=== PATIENT | female | born 1980 | race Caucasian/White ===

== ENCOUNTER 2020-02-18 05:25 | Day surgery (SDC) | payer OTHER, SELFPAY ==
--- NOTE | 2020-02-15 17:17 | HP.PCM_ITS ---
- Problem List (1) Uterine polyp Status: Acute History and Physical Date of Admission: 02/18/20 DATE OF SERVICE: February 10, 2020 ? PROBLEM:?Intermenstrual spotting, uterine polyp ? Pelvic US: Impression ========= Normal appearing anteverted uterus that measures 94 mm x 40 mm x 50 mm. The central endometrial complex measures 10.4 mm in combined thickness. An endometrial polyp was seen: Polyp(s): Size 13 mm x 6 mm x 8 mm. Mean 9.0 mm. lower uterine segment The right ovary is not visualized. The left ovary is normal appearing. No adnexal masses were observed. There is no free fluid visualized in the peritoneal cavity. Recommendations Consider hysteroscopic evaluation and management of intracavitary lesion if clinically indicated. ? PAST SURGICAL HISTORY:? PAST SURGICAL HISTORY PAST SURGICAL HISTORY Procedure Laterality Date ? APPENDECTOMY ? ? ? PAST SURGICAL HISTORY OF ? ? ? Cyst removed from right ovary ? REMOVAL OF TONSILS,<12 Y/O ? ? ? Tonsillectomy ? PAST MEDICAL HISTORY:? PAST MEDICAL HISTORY PAST MEDICAL HISTORY Diagnosis Date ? Abnormal Pap smear of cervix ? ? 2007 ASCUS w/ pos HPV ? Chlamydia trachomatis infection of unspecified site ? ? treated age 17 or 18 ? Dysmenorrhea ? ? Dyspareunia ? ? Excessive or frequent menstruation ? ? Heavy periods ? Irregular menstrual cycle ? ? Irregular periods ? Other and unspecified ovarian cyst ? ? Ovarian cyst - at 18 years old ? Other specified anemias ? ? DX 6 years ago ? SUBJECTIVE:?She is not sure when her menses is to start.?DUB.? ? SOCIAL HISTORY:? SOCIAL HISTORY Social History ? Tobacco Use ? Smoking status: Former Smoker ? ? Years: 2.00 ? ? Quit date: 06/27/1998 ? ? Years since quittin.6 ? Smokeless tobacco: Never Used ? Tobacco comment: Quit Smoking Substance Use Topics ? Alcohol use: No ? Drug use: No ? Allergies: ?Amoxicillin ?Swelling ?Penicillins ?Swelling ? No current outpatient medications on file prior to visit. No current facility-administered medications on file prior to visit.? ? OBJECTIVE: ? VITALS:? BP 110/70 ? Pulse 66 ? Resp 12 ? Ht 5' 3.25 (1.607 m) ? Wt 142 lb 12.8 oz (64.8 kg) ? LMP 12/31/2019 (Exact Date) ? BMI 25.10 kg/m? ? HEENT: ?Normocephalic, atraumatic, Mucus membranes moist without lesions. ? NECK: ???Soft and Supple. ?No adenopathy , thyromegaly or bruits. ? SKIN: No lesions. ? CHEST: Clear to auscultation. ?No wheezes or rales. ?Good air exchange. ? HEART: Regular rate and rhythm ?No S3 or S4. ?No gallops or rubs. ? BACK: Nontender with no CVA tenderness. ? ABDOMEN: Soft, non-tender, non-distended, no masses, no hepatosplenomegaly. ? LOWER EXTREMITIES: There was no pitting edema, no palpable cords and no skin ch anges. ? ASSESSMENT:?Intermenstrual spotting, uterine polyp ? PLAN: 1)?Discussed hysteroscopy, polypectomy, D&C.?The rationale for the proposed surgery was discussed in addition to risks, benefits, and alternatives. ?General pre- and post-operative care was reviewed. ?Questions were answered. ?After discussion, the patient indicated a desire to proceed with the planned surgery. ? Lynnette Rowell,?DO
[2020-02-18] VITALS (7 sets, daily range): BP systolic 116–126; BP diastolic 79–90; PULSE 61–77; RESP 16; TEMP 36.2–36.7; O2SAT 98–100; BMI 25.4
[2020-02-18 06:10] LABS: Hematocrit 37.3 % (37-47); Hemoglobin 12.1 g/dL (12.0-15.0); Mean Corp Hgb Conc 32.4 g/dL (32-36); Mean Corpuscular Hgb 28.4 pg (27.0-32.0); Mean Corpuscular Volume 87.6 fL (81-99); Mean Platelet Vol. 9.7 fl (6.2-12.0); Platelet Count 203 K/mm3 (150-450); RBC Distribution Width CV 12.9 % (11.6-14.6); RBC Distribution Width SD 40.8 fl (35.1-43.9); Red Blood Count 4.26 M/mm3 (4.2-5.4); White Blood Count 5.8 K/mm3 (4.4-11.0)
[2020-02-18 06:21] LABS: Internal QC Validated? YES +Cl - CLEAR BKGD; Pregnancy, Urine Negative Negative
[2020-02-18] MEDS: Lactated Ringers 1,000 ML 100 ML IV (06:30)
--- NOTE | 2020-02-18 07:30 | EMB_PTH ---
PATIENT: SHARON GAMBOA LOC: [facility] [place][id number] AGE/SX: 39/F ROOM: RE02/18/[address]: Dr. Lynnette Rowell DO : 1980 BED: DIS: 02/18/2020 SPEC #: [id number] RECD: 02/18/20 09:51 STATUS: ELIZABETH DARIO #: [id number] LAKESHA: 02/18/20 07:[address]: Lynnette Rowell DEPT: SURGICAL PATHOLOGY RECD BY: Gloria Escalante ENTERED: 02/18/20 10:19 SP TYPE: ENDOM BX/C OTHR DR: Dr. Prem Joseph MD Tissues: Endometrium, NOS Procedures: Surgery Specimen Level IV HEADER OPERATION: Hysteroscopy, D & C Symphion PRE-OP DIAGNOSIS: Abnormal uterine bleeding TISSUE SUBMITTED: Endometrial curettings MICROSCOPIC DIAGNOSIS Endometrial curettings: Secretory endometrium with glandular and stromal breakdown. SJ:keon 02/19/20 COMMENT Case has been reviewed in consultation with Dr. Doty who concurs with the above diagnosis. IDC:AM MICROSCOPIC DESCRIPTION Slides are reviewed. GROSS DESCRIPTION Received in fixative is one container labeled with the patient's name and designated endometrial curettings. The specimen consists of multiple irregular fragments of gracia-pink soft tissue mixed with mucoid tissue that in aggregate measure 3 x 2.5 x 0.2 cm. The specimen is totally submitted in one cassette. / SJ:keon 02/18/20 TC:5 CPT: 05575
--- NOTE | 2020-02-18 08:10 | OP.PCM_ITS ---
Problem List (1) Uterine polyp Status: Acute (2) DUB (dysfunctional uterine bleeding) Status: Acute (3) Intermenstrual spotting Status: Acute Report of Operation Date of Procedure: 02/18/20 Pre-Operative Diagnosis: DUB, intermenstrual spotting, polyp on pelvic US Post-Operative Diagnosis: DUB, intermenstrual spotting Surgery/Procedure Performed:: Hysteroscopy D&C Description of Surgical Findings:: Fluffy appearing endometrium. No polyp or fibroid noted. Good descent of uterus and cervix. Uterine cavity sounded to 9 cm. Normal appearing uterine cavity Special Medications: None Specimen's removed: Endometrial curettings Drains: None Estimated Blood Loss (mL): < 50 cc Fluids Replaced: 400 cc with 50 cc fluid deficit Description of Procedure: Procedure start time: 738 Procedure stop time: 802 Captain Fishing Vessel: None She was taken to the operating room where MAC anesthesia was found to be adequate. She was prepped and draped in the dorsal lithotomy position using yellow fin stirrups. A weighted speculum was placed in the vagina to expose the cervix. A single-tooth tenaculum was placed on the anterior lip of the cervix. The cervix was serially dilated to accommodate the hysteroscope. Hysteroscope was advanced to the fundus of the uterus and the uterine cavity was distended with normal saline. Visibility was limited due to the patient being on menses. The hysteroscope was removed, and the Symphion hysteroscope was then set up and advanced to the fundus of the uterus. Using the Symphion hysteroscope, good visibility was obtained. Bilateral tubal ostia were noted. The uterine cavity was normal-appearing. There were no polyps or fibroids noted. The endometrium appeared proliferative. Pictures were taken. The hysteroscope was then slowly removed through the cervical canal were no polyp was noted. The hysteroscope was removed. Sharp curettage was performed and endometrial curettings were sent to pathology for review. All instruments were removed from the vagina. Bleeding was hemostatic. Patient tolerated the procedure well. Instrument and sponge counts were correct. Patient was taken to the recovery in stable c ondition. Grafts/Implants Used: None - Complications None - Admit VTE Documentation VTE Present on Admission: No VTE Mechan Device Prophylaxis: SCD's VTE Pharm Prophylaxis ordered?: No
--- NOTE | 2020-02-18 08:15 | DCINST_ITS ---
Discharge Diet: No Restrictions Discharge Activity: Return to Normal Activity, May Shower Return to work on:: 02/22/20 May resume sexual activity in: 1-2 weeks - when bleeding stops. Nothing in the vagina and no baths or hot tubs until the bleeding stops Weight Bearing Status: Weight bearing as tolerated Lifting Restrictions: No restrictions Call your doctor if you observe: Fever of 101 or Higher, Inability to urinate, Inability to have a bowel movement, Using more than one pad per hour, Shortness of breath, Dizziness, Fainting spells, Swelling in the ankles, Chest pain, Increased palpitations (irregular heartbeat), Calf discomfort, Uncontrolled pain Allergies/Adverse Reactions: Allergies Penicillins [PCN] Allergy (Verified 02/10/20 14:19) Anaphylaxis Medications to take at Discharge NK 02/10/20 Primary Care Physician: Prem Joseph MD [Primary Care Provider] - Test Results: Test results from this visit will be discussed in further detail at your follow- up appointment, if applicable. Please Follow Up With: Lynnette Rowell DO When: 1-2 weeks
== END 2020-02-18 09:31 | disposition home or self-care (01) ==
LOC: SDC 05:25 → AC 05:26
PROVIDERS: Anesthesiology; Referring Provider Obstetrics & Gynecology; Visit Provider Obstetrics & Gynecology
PROC: 0UB98ZZ Excision of Uterus, Via Natural or Artificial Opening Endoscopic (ICD-10-PCS; CPT 58558; principal; 2020-02-18 07:15)
DX: N93.8 Other specified abnormal uterine and vaginal bleeding (principal); N92.3 Ovulation bleeding; N94.10 Unspecified dyspareunia; N92.0 Excessive and frequent menstruation with regular cycle; N94.6 Dysmenorrhea, unspecified; Z87.891 Personal history of nicotine dependence; Z90.721 Acquired absence of ovaries, unilateral
CPT/HCPCS: 00952; 58558; 36415; 81025; 85027; 86850; 86900; 86901; 87635; 88305; C9803; J7120; J2405; U0003

== ENCOUNTER 2023-11-22 09:15 | Day surgery (SDC) | payer OTHER, SELFPAY ==
--- NOTE | 2023-11-18 22:02 | PCM.HP.BLA ---
History and Physical Date of Admission: 11/22/23 DATE OF SERVICE: November 18, 2023 PROBLEM: DUB DIAGNOSIS: DUB PAST SURGICAL HISTORY: PAST SURGICAL HISTORY PAST SURGICAL HISTORY Procedure Laterality Date ? APPENDECTOMY ? HYSTEROSCOPY, DIAGNOSTIC (SEPARATE 02/18/2020 Hysteroscopy D&C-Dr. Rowell ? PAST SURGICAL HISTORY OF Cyst removed from right ovary ? TONSILLECTOMY PRIMARY/SECONDARY <AGE 12 Tonsillectomy PAST MEDICAL HISTORY: PAST MEDICAL HISTORY PAST MEDICAL HISTORY Diagnosis Date ? Abnormal Pap smear of cervix 2007 ASCUS w/ pos HPV ? Chlamydia trachomatis infection of unspecified site treated age 17 or 18 ? Dysmenorrhea ? Dyspareunia ? Excessive or frequent menstruation Heavy periods ? Irregular menstrual cycle Irregular periods ? Other and unspecified ovarian cyst Ovarian cyst - at 18 years old ? Other specified anemias DX 6 years ago SUBJECTIVE: Just finished menses 2 days ago. Had heavy bleeding followed by spotting for 2 weeks. Partner had vasectomy. SOCIAL HISTORY: SOCIAL HISTORYExpand by Default Social History Tobacco Use ? Smoking status: Former Years: 2 Types: Cigarettes Quit date: 06/27/1998 Years since quittin.4 ? Smokeless tobacco: Never ? Tobacco comments: Quit Smoking Vaping Use ? Vaping Use: Never used Substance Use Topics ? Alcohol use: Not Currently ? Drug use: Not Currently Types: Marijuana Allergies: Amoxicillin Swelling Penicillins Swelling Current Outpatient Medications on File Prior to Visit Medication Sig ? ibuprofen (MOTRIN) 200 mg tablet Take 400 mg by mouth every 8 hours as needed for pain. ? norethindrone (AYGESTIN) 5 mg tablet Take 1 tablet by mouth 3 times per day until bleeding stops. Then take 1 tablet by mouth daily for 3 days. No current facility-administered medications on file prior to visit. OBJECTIVE: VITALS: BP 106/76 Pulse 68 Resp 16 Ht 161.3 cm (5' 3.5) Wt 66.6 kg (146 lb 12.8 oz) LMP 08/14/2023 (Exact Date) BMI 25.60 kg/m? HEENT: Normocephalic, atraumatic, Mucus membranes moist without lesions. NECK: Soft and Supple. SKIN: No lesions. CHEST: No increased respiratory effort. HEART: Regular rate. BACK: Nontender with no CVA tenderness. ABDOMEN: Soft, non-tender, non-distended, no masses, no hepatosplenomegaly. LOWER EXTREMITIES: There was no pitting edema, no palpable cords and no skin changes. ASSESSMENT: DUB PLAN: 1) Discussed r/b/a hysteroscopy, D&C, polypectomy, progesterone IUD insertion. The rationale for the proposed surgery was discussed in addition to risks, benefits, and alternatives. General pre- and post-operative care was reviewed. Questions were answered. After discussion, the patient indicated a desire to proceed with the planned surgery. Lynnette Rowell, DO Assessment & Plan Assessment/Plan (1) DUB (dysfunctional uterine bleeding): (2) Uterine polyp:
[2023-11-22] VITALS (9 sets, daily range): BP systolic 112–131; BP diastolic 76–87; PULSE 70–76; RESP 14–20; TEMP 36.3–36.7; O2SAT 100; BMI 26.2
[2023-11-22 09:36] LABS: Internal QC Validated? YES +Cl - CLEAR BKGD; Pregnancy, Urine Negative Negative; Record Kit Lot#,Urine Preg HCG0000772476
--- NOTE | 2023-11-22 09:39 | PCM.PRE.AN2 ---
ASA Classification* ASA Classification ASA Classification: 2 Assessment & Plan Anesthesia* Anesthesia Assessment Anesthesia Assessment: Discussed sedation and/or anesthesia options, risks, benefits, and alternatives with patient/parents/legal guardian/POA. Questions invited. The patient/parents/legal guardian/POA seems to understand and agrees to proceed with anesthesia plan. Reviewed the physical assessment, medical history, allergy history and patient home medications list prior to surgery/procedure/anesthetic and documented any changes. Performed airway and anesthesia risk assessments. Anesthesia Type Anesthesia Type: MAC (see written pre anesthesia record for full assessment) Anesthesia Focused Assessment* Temperature: 98.1 F Pulse Rate: 70 Blood Pressure: 129/84 Respiratory Rate: 16 Pulse Ox: 100 Airway Assessment Mouth opens: >3 cm Mallampati Score: II Focused Labs Anesthesia Preop lab: CBC WBC 5.8 K/mm3 (4.4-11.0) 02/18/20 06:00 RBC 4.26 M/mm3 (4.2-5.4) 02/18/20 06:00 Hgb 12.1 g/dL (12.0-15.0) 02/18/20 06:00 Hct 37.3 % (37-47) 02/18/20 06:00 Plt Count 203 K/mm3 (150-450) 02/18/20 06:00 CHEMISTRY COAG Urine Test Negative Negative 11/22/23 09:25 Pre-Assessment Diagnosis/Proposed Procedure Planned Operative Procedure(s): HYSTEROSCOPY D&C POLYPECTOMY LILETTA IUD INSERTION Anesthesia History Anesthesia History - in classroom tutor: Anesthesia History - in classroom tutor Hx Hospitalization No 11/18/23 14:00 Any Problems With Anesthesia No 11/18/23 14:00 Cholinesterase deficiency No 11/18/23 14:00 You/Your Family Experience No 11/18/23 14:00 fever (hyperthermia) with Relationship Recent Exposure to Contagious No 11/22/23 09:34 Disease Does patient have nerve No 11/18/23 14:00 stimulator Patient instructed to have device shut off --Does patient have Pacemaker No 11/22/23 09:34 or ICD? When Was Last Pacemaker Check QUESTION #4 FULL TEXT: You/Your Family Experience fever (hyperthermia) with Anesthesia Last Oral Intake Last Oral intake: Last Oral Intake NPO since 00:00 11/22/23 09:34 Meds taken in AM with sips of water? Meds patient instructed to take am of surgery PONV PONV - in classroom tutor: PONV - in classroom tutor Female Yes 11/18/23 14:00 HX of Motion Sickness No 11/18/23 14:00 HX of N/V After Surgery No 11/18/23 14:00 Non-Smoker Yes 11/18/23 14:00 Duration of Surgery greater No 11/18/23 14:00 than 60 minutes Number of Risk Factors 2 11/18/23 14:00 PONV Score Moderate Risk 11/18/23 14:00 Height & Weight Height & Weight: Anesthesia: Height & Weight Height 5 ft 3 in 11/22/23 09:34 Weight: 67.132 kg 11/22/23 09:34 Body Mass Index (BMI) 26.2 11/22/23 09:34 Respiratory Assessment Respiratory Assessment - in classroom tutor: Respiratory Tract Infection Hx - in classroom tutor Hx Respiratory Tract Infection No 11/18/23 14:00 STOP Sleep Apnea STOP Sleep Apnea - in classroom tutor: STOP Sleep Apnea - in classroom tutor Hx Hypertension No 11/18/23 14:00 Hx Sleep Apnea No 11/18/23 14:00 CPAP BIPAP Do you snore loudly (louder No 11/18/23 14:00 than talking or can be heard Do you often feel tired/ No 11/18/23 14:00 fatigued/ sleepy during daytime? Has anyone observed you stop No 11/18/23 14:00 breathing during sleep? STOP Results Negative 11/18/23 14:00 QUESTION #5 FULL TEXT : Do you snore loudly (louder than talking or can be heard through closed doors)? Tobacco Use History Tobacco Use History - in classroom tutor: Tobacco Use History - in classroom tutor Tobacco Use Smoking Status Former smoker 11/18/23 14:00 Hx Tobacco Use No 11/18/23 14:00 Years Smoking Packs Smoked per Day Smoking Cessation Date was No - quit smoking greater 11/18/23 14:00 within the last 15 years than 15 years ago Hx Smoking Cessation Date Hx Smoking Cessation No 11/18/23 14:00 Counseling Hematologic Medial History Hematologic Hx - in classroom tutor: Hematologic Medical Hx - digital measurement advisor Hx of Blood Transfusion Yes 11/18/23 14:00 Hx of Transfusion in last 3 No 11/18/23 14:00 Months Date of Last Transfusion (if within last 3 months) Ever experience any problems No 11/18/23 14:00 with transfusion(s)? Specify any problems Hx of Preganancy in last 3 No 11/18/23 14:00 Months Nurse Filling Out Transfusion SFRANTZ 11/18/23 14:00 & Questions: Date: 11/18/23 11/18/23 14:00 Time: 14:01 11/18/23 14:00 Patient unable to answer at this time (ie. confused, unrespo /Reproduction History /Reproductive History - in classroom tutor: /Reproductive Hx- in classroom tutor Hx Now No 11/18/23 14:00 Gestational Age (in weeks): EDC: Hx Hx Para Hx Section SAB No 11/18/23 14:00 Active Medications Active Medications: Current Medications Generic Name Dose Route Start Last Admin Trade Name Freq PRN Reason Stop Dose Admin Lactated Ringer's 1,000 mls @ 15 mls/hr 11/22/23 09:30 IV .Q48H MAUREEN PFSH Medical History Wears glasses Alcohol use Anemia Loss of consciousness Former smoker Cardiology follow-up encounter History of stress test History of irregular heartbeat Home Medications ?Medication ?Instructions ?Recorded ?Last Taken ?Type cyanocobalamin-liver extract tablet 1 tab PO DAILY PRN PRN FOR FATIGUE 11/18/23 Unknown History ibuprofen 400 mg tablet (IBU) 400 mg PO Q8H PRN PRN pain 11/18/23 Unknown History Allergy/AdvReac Type Severity Reaction Status Date / Time Penicillins (PCN) Allergy Anaphylaxis Verified 11/22/23 09:34 Surgical History Hx of appendectomy Hx of unilateral oophorectomy Hx of tonsillectomy History of umbilical hernia repair History of hysteroscopy Social History Smoking Status: Former smoker Review of Systems (Anesthesia) ROS Narrative System reviewed and no additional complaints, except as documented.
[2023-11-22] MEDS: Lactated Ringers 1,000 ML 15 ML IV (09:42)
[2023-11-22 10:01] LABS: Hematocrit 38.9 % (37-47); Hemoglobin 12.3 g/dL (12.0-15.0); Mean Corp Hgb Conc 31.6 g/dL (32-36); Mean Corpuscular Hgb 26.4 pg (27.0-32.0); Mean Corpuscular Volume 83.5 fL (81-99); Platelet Count 219 K/mm3 (150-450); RBC Distribution Width CV 15.7 % (11.6-14.6); RBC Distribution Width SD 47.6 fl (35.1-43.9); Red Blood Count 4.66 M/mm3 (4.2-5.4); White Blood Count 7.4 K/mm3 (4.4-11.0)
[2023-11-22] MEDS: Lidocaine 1% /Epi 1:100 (20ml) 20 ML Vial (10:49)
[2023-11-22] MEDS: Levonorgestrel IUD (Liletta) 1 EACH INTRA-UTER (10:58)
--- NOTE | 2023-11-22 11:00 | EMB_PTH ---
PATIENT: SHARON GAMBOA LOC: [facility] [place][id number] AGE/SX: 43/F ROOM: RE11/22/[address]: Dr. Lynnette Rowell, : 1980 BED: DIS: 11/22/2023 SPEC #: [id number] RECD: 11/22/23 13:35 STATUS: ELIZABETH DARIO #: [id number] LAKESHA: 11/22/23 11:[address]: Lynnette Rowell DEPT: SURGICAL PATHOLOGY RECD BY: Fatemeh Shen ENTERED: 11/22/23 13:52 SP TYPE: ENDOM BX/C CONSTANCE DR: No Primary Care Phys Tissues: Endometrium, NOS Procedures: Surgery Specimen Level IV HEADER OPERATION: Hysteroscopy, D&C, polypectomy, Symphion, Liletta IUD insertion PRE-OP DIAGNOSIS: Dysfunctional uterine bleeding polyp TISSUE SUBMITTED: Endometrial curettings MICROSCOPIC DIAGNOSIS Endometrial curettings: Early secretory endometrium. MORALES/ 11/25/2023 MICROSCOPIC DESCRIPTION Slides are reviewed. GROSS DESCRIPTION Received in fixative is one container labeled with the patient's name and designated Endometrial curettings. The specimen consists of multiple irregular fragments of hemorrhagic soft tissue that in aggregate measure 5.0 x 3.0 x 0.3 cm. The specimen is totally submitted in two cassettes. MORALES/ 11/22/2023 TC:4 CPT:66066
--- NOTE | 2023-11-22 11:05 | PCM.OPRPT ---
Problems Associated Problem List Diagnoses (1) DUB (dysfunctional uterine bleeding): (2) Uterine polyp: Report of Operation Date of Procedure: 11/22/23 Pre-Operative Diagnosis: DUB, uterine polyp Post-Operative Diagnosis: As above Surgery/Procedure Performed:: Hysteroscopy, D&C, polypectomy, Liletta IUD insertion Description of Surgical Findings:: 1 endometrial polyp noted along anterior wall of uterus. Normal appearing endometrium. Bilateral tubal ostia visualized. Good descent of uterus and cervix. Uterine cavity sounded to 8.5 cm Surgeon: Lynnette Rowell recycling center operator: None Type of Anesthesia: MAC Special Medications: Liletta IUD Specimen's removed: Endometrial polyp and curettings Drains: None Estimated Blood Loss (mL): < 10 Fluids Replaced: 300 cc fluid deficit Description of Procedure: Patient was taken to the operating room were MAC anesthesia was induced. She was prepped and draped in the dorsal lithotomy position using yellowfin stirrups. A weighted speculum was placed in the vagina to expose the cervix and anterior lip of the cervix was grasped with a single-tooth tenaculum. Local was infiltrated circumferentially within the cervix. The cervix was serially dilated to accommodate the Symphion hysteroscope. The Symphion hysteroscope was advanced to the fundus of the uterus, and the uterus was distended with normal saline. 1 endometrial polyp was noted along the anterior surface of the uterus. The endometrial polyp was resected using the Symphion resection device. The uterine cavity was otherwise normal-appearing and bilateral tubal ostia were visualized. The hysteroscope was removed. Sharp curettage was performed for moderate amount of tissue. The endometrial polyp and endometrial curettings were sent to pathology for review. Uterus sounded to 8.5 Centimeters. The Liletta IUD was inserted at the fundus of the uterus in normal fashion. The strings were cut to 2 cm in length. All instruments were removed from the vagina. Bleeding was hemostatic. Vaginal sweep was performed. Instrument and sponge counts were correct. The patient was taken to the recovery in stable condition. Grafts/Implants Used: None Procedure Start Time: 10:49 Procedure Stop Time: 11:02 Complications None Admit VTE Documentation VTE Present on Admission: No VTE Mechan Device Prophylaxis: SCD's
--- NOTE | 2023-11-22 11:12 | PCM.POST.ANE ---
Anesthesia: Postop Eval I Current Vital Signs Temperature: 97.6 F Pulse Rate: 75 Blood Pressure: 118/77 Respiratory Rate: 20 Pulse Ox: 100 Oxygen Delivery Method: Room Air Assessment Airway patent: Yes Spontaneous unlabored respirations: Yes Mental status: Awake and Calm nausea: No Vomiting: No Anesthesia Complication: No Fluid Hydration Crystalloid volume administer (ml): 600 Total IV fluid infused: 600 Progress Note Anesthesia document: Postop Eval 1 completed: Yes
--- NOTE | 2023-11-22 11:15 | DCINST_ITS ---
Discharge Instructions Diet Discharge Diet: No restrictions Activity Discharge Activity: May Drive (once you are more than 24 hours out from surgery) and May Shower (once you are more than 24 hours out from surgery) May resume sexual activity in: 1-2 weeks (nothing in the vagina for at least 1 week and no soaking in water) Weight Bearing Status: Weight bearing as tolerated Lifting Restrictions: none Dressing / Incision Call your doctor if you observe: Fever of 101 or Higher, Coldness, Increased Pain, Numbness or Tingling, Change in Color, Inability to urinate, Inability to have a bowel movement, Using more than 1 pad per hour, Shortness of breath, Dizziness, Fainting spells, Swelling in the ankles, Chest pain, Prolonged hiccupping, Increased palpitations (irregular heartbeat), Calf discomfort and Uncontrolled pain Follow Up Care Please Follow Up With: Lynnette Rowell DO When: 1-2 weeks for a post operative appointment Test Results: Test results from this visit will be discussed in further detail at your follow- up appointment, if applicable. Discharge Plan Admission Primary Reason for Your Visit: surgery Attending Provider: Lynnette Rowell Primary Care Provider: Care Physician,No Primary Instructions Print Language: Mongolian Discharge Orders/Prescriptions Prescriptions: Continued cyanocobalamin-liver extract Tablet 1 tab PO DAILY PRN PRN (Reason: FOR FATIGUE) ibuprofen [IBU] 400 mg tablet 400 mg PO Q8H PRN PRN (Reason: pain) Referrals / Follow Up: Prem Joseph MD [Non-Staff] - Disposition Disposition (needs filled in before D/C Order can be placed): Home, Self Care
--- NOTE | 2023-11-22 12:13 | SUR.PHASEII ---
pt nauseous. quease Ease given. will cont to monitor. pt voided.
--- NOTE | 2023-11-22 12:54 | SUR.PHASEII ---
pt nauseous and vomited when getting dressed. did not want benadryl. still wants to go home.
--- NOTE | 2023-11-22 16:38 | POSTOPAN2_ITS ---
Anesthesia Postop Eval I Sum Postop Eval Completion status Anesthesia document: Postop Eval 1 completed: Yes Anesthesia Postop Eval I Summary Anesthesia Postop Eval I Summary: Anesthesia Postop Eval I: Assessment Summary Airway patent Yes 11/22/23 11:13 INTERNET MARKETING SPECIALIST.JDEF Spontaneous unlabored Yes 11/22/23 11:13 INTERNET MARKETING SPECIALIST.JDEF respirations Mental status Awake,Calm 11/22/23 11:13 INTERNET MARKETING SPECIALIST.JDEF nausea No 11/22/23 11:13 INTERNET MARKETING SPECIALIST.JDEF Vomiting No 11/22/23 11:13 INTERNET MARKETING SPECIALIST.JDEF Anesthesia Postop Eval I: Fluid Summary Crystalloid volume administer 600 11/22/23 11:13 INTERNET MARKETING SPECIALIST.JDEF (ml) Colloids volume administered ( ml) Blood Product volume administered (ml) Total IV fluid infused 600 11/22/23 11:13 INTERNET MARKETING SPECIALIST.JDEF Anesthesia Postop Eval I: Summary Notes Anesthesia Complication No 11/22/23 11:13 INTERNET MARKETING SPECIALIST.JDEF Anesthesia Complication Comment: Post-operative progress note Anesthesia: Postop Eval II Evaluation Mental status: Awake and Calm Pain Level: 1 nausea: No Vomiting: No Complications Anesthesia Complication: No
--- NOTE | 2023-11-22 16:38 | PCM.POSTANE2 ---
Anesthesia Postop Eval I Sum Postop Eval Completion status Anesthesia document: Postop Eval 1 completed: Yes Anesthesia Postop Eval I Summary Anesthesia Postop Eval I Summary: Anesthesia Postop Eval I: Assessment Summary Airway patent Yes 11/22/23 11:13 SECTION [email or web address] Spontaneous unlabored Yes 11/22/23 11:13 SECTION [email or web address] respirations Mental status Awake,Calm 11/22/23 11:13 SECTION [email or web address] nausea No 11/22/23 11:13 SECTION [email or web address] Vomiting No 11/22/23 11:13 SECTION [email or web address] Anesthesia Postop Eval I: Fluid Summary Crystalloid volume administer 600 11/22/23 11:13 SECTION [email or web address] (ml) Colloids volume administered ( ml) Blood Product volume administered (ml) Total IV fluid infused 600 11/22/23 11:13 SECTION [email or web address] Anesthesia Postop Eval I: Summary Notes Anesthesia Complication No 11/22/23 11:13 SECTION [email or web address] Anesthesia Complication Comment: Post-operative progress note Anesthesia: Postop Eval II Evaluation Mental status: Awake and Calm Pain Level: 1 nausea: No Vomiting: No Complications Anesthesia Complication: No
== END 2023-11-22 12:57 | disposition home or self-care (01) ==
LOC: SDC 09:17 → AC 09:19
PROVIDERS: Anesthesiology; Referring Provider Obstetrics & Gynecology; Visit Provider Obstetrics & Gynecology
PROC: 0UB98ZZ Excision of Uterus, Via Natural or Artificial Opening Endoscopic (ICD-10-PCS; CPT 58558; principal; 2023-11-22 10:45)
DX: N84.0 Polyp of corpus uteri (principal); N93.8 Other specified abnormal uterine and vaginal bleeding; Z87.891 Personal history of nicotine dependence; Z30.430 Encounter for insertion of intrauterine contraceptive device
CPT/HCPCS: 58558; 58300; 00952; 81025; 85027; 86850; 86900; 86901; 88305; J7120; J2405